=== PATIENT | female | born 1955 | race Caucasian/White ===

== ENCOUNTER 2022-06-03 16:30 | Outpatient (CLI) | payer MEDICARE, BC, SELFPAY ==
[2022-06-03 17:18] LABS: Vitamin D 25 Hydroxy* 41 ng/mL (30-80)
== END 2022-06-03 16:31 | disposition home or self-care (01) ==
PROVIDERS: PCP Internal Medicine; Visit Provider Internal Medicine
DX: M85.80 Other specified disorders of bone density and structure, unspecified site (principal)
CPT/HCPCS: 82306

== ENCOUNTER 2022-07-07 08:33 | Outpatient (CLI) | payer MEDICARE, BC, SELFPAY ==
--- NOTE | 2022-07-07 08:45 | CRLHL7_ITS ---
For Patients: As a result of the Century Cures Act, medical imaging exams and procedure reports are released immediately into your electronic medical record. You may view this report before your referring provider. If you have questions, please contact your health care provider. BILATERAL SCREENING MAMMOGRAM WITH COMPUTER-AIDED DETECTION AND TOMOSYNTHESIS TECHNIQUE: CC and MLO views were obtained. These mammographic images have been obtained using full-field digital technique. These mammographic images were interpreted with the benefit of computer-aided detection. Breast Tomosynthesis was used in this interpretation. COMPARISON FILM: 03/18/21, 10/01/17 diagnostic, 09/25/17, 05/20/13. FINDINGS: There are scattered areas of fibroglandular density IMPRESSION: There is no radiographic evidence for malignancy. ASSESSMENT: BI-RADS Category 1: Negative RECOMMENDATION: Routine screening mammogram in 1 year. A lay language report of this examination will be provided to the patient. Maikel Mansfield M.D. Diagnostic Radiologist [email or web address] RANDY/[email or web address] Transcribed: 8:03 p.m. JEREMY/Dictated by: Maikel Mansfield MD @ 07/08/2022 11:47:00 AM (Electronically Signed)
== END 2022-07-07 08:34 | disposition home or self-care (01) ==
LOC: MAMMO 08:35
PROVIDERS: PCP Internal Medicine; Visit Provider Internal Medicine
DX: Z12.31 Encounter for screening mammogram for malignant neoplasm of breast (principal)
CPT/HCPCS: 77063; 77067

== ENCOUNTER 2023-08-26 09:00 | Outpatient (CLI) | payer MEDICARE, BC, SELFPAY ==
--- NOTE | 2023-08-26 09:15 | CRLHL7_ITS ---
For Patients: As a result of the Cures Act, medical imaging exams and procedure reports are released immediately into your electronic medical record. You may view this report before your referring provider. If you have questions, please contact your health care provider. BILATERAL SCREENING MAMMOGRAM WITH COMPUTER-AIDED DETECTION AND TOMOSYNTHESIS TECHNIQUE: CC and MLO views were obtained. These mammographic images have been obtained using full-field digital technique. These mammographic images were interpreted with the benefit of computer-aided detection. Breast Tomosynthesis was used in this interpretation. COMPARISON FILM: 07/07/22, 03/18/21, 09/25/17. FINDINGS: There are scattered areas of fibroglandular density IMPRESSION: There is no radiographic evidence for malignancy. ASSESSMENT: BI-RADS Category 2: Benign RECOMMENDATION: Routine screening mammogram in 1 year. A lay language report of this examination will be provided to the patient. Maikel Mansfield M.D. Diagnostic Radiologist [email or web address] RANDY/[email or web address] / be/Dictated by: Maikel Mansfield MD @ 08/26/2023 11:32:00 AM (Electronically Signed)
== END 2023-08-26 09:01 | disposition home or self-care (01) ==
LOC: MAMMO 09:02
PROVIDERS: PCP Internal Medicine; Visit Provider Internal Medicine
DX: Z12.31 Encounter for screening mammogram for malignant neoplasm of breast (principal)
CPT/HCPCS: 77063; 77067

== ENCOUNTER 2024-02-03 13:17 | Outpatient (CLI) | payer MEDICARE, BC, SELFPAY ==
--- NOTE | 2024-02-03 13:30 | CRLHL7_ITS ---
For Patients: As a result of the Century Cures Act, medical imaging exams and procedure reports are released immediately into your electronic medical record. You may view this report before your referring provider. If you have questions, please contact your health care provider. DXA BONE MINERAL DENSITY STUDY Reason for exam: Osteoporosis. History of fractured ribs. Current height (in): 68. Weight (lb): 177. Menopause age: 33. Ethnicity: White. 1. Have you had a previous hip or vertebral fracture? No. 2. Have you had any fractures during your adult life which did not result from significant trauma (e.g., auto accident)? No. 3. Did either of your parents have a hip fracture? No. 4. Do you smoke? Yes. 5. Have you ever taken Glucocorticoids? No. 6. Do you have rheumatoid arthritis? No. 7. Do you have secondary osteoporosis? No. 8. Do you drink 3 or more alcoholic drinks per day? No. 9. Are you being treated for osteoporosis? No. 10. Have you ever taken any of the following medications: Actonel, Evista, Fosamax, Miacalcin, Reclast, Boniva, Forteo, HRT (i.e. estrogen/hormone therapy), Protelos, Prolia, Vitamin D, Calcium, other ??? please specify. ANSWER: Yes, vitamin D. 11. Do you have any of the following medical conditions: Anorexia or bulimia, asthma or emphysema, end stage renal disease, hyperparathyroidism, any seizure disorders, cancer, inflammatory bowel diseases, hysterectomy, other ??? please specify. ANSWER: Yes, hysterectomy. 12. What was your maximum height (inches)? 68. 13. Do you perform weight bearing exercise regularly? No. 14. Do you regularly consume dairy products? Yes. 15. Do you drink caffeinated beverages? No. 16. At what age did your period start? 11. 17. Are you premenopausal? No. 18. How many full term pregnancies have you had? 2. 19. Have you ever missed your period for more than 6 months in a row (not including or menopause)? No. TECHNIQUE: Bone mineral density study was performed using the [employer] FINDINGS: The results of the study expressed as bone mineral density (BMD) are as follows: Lumbar spine L1 to L4: BMD: 1.076 g/cm2. T-score: 0.3. Z-score: 2.4. Neck Left: BMD: 0.704 g/cm2. T-score: -1.3. Z-score: 0.5. Right: BMD: 0.712 g/cm2. T-score: -1.2. Z-score: 0.6. Total Left: BMD: 0.867 g/cm2. T-score: -0.6. Z-score: 0.9. Right: BMD: 0.893 g/cm2. T-score: -0.4. Z-score: 1.1. IMPRESSION: Osteopenia. *Comparison exams done prior to 01/2020 were performed on different unit, [employer]. COMPARISON: Compared with scan of 03/13/2021, the bone mineral density has increased by 3.4 percent at the spine and increased by 4.7 percent at the hip. FRAX 10-year Fracture Risk Major Osteoporotic Fracture: 9.8 percent Hip Fracture: 2.1 percent Reported Risk Factors: [place] () Neck BMD=0.704, BMI=26.9, smoking Solo Griffin M.D. Body/Diagnostic Radiologist [email or web address] CAROLYN/sp SP/Dictated by: Solo Griffin MD @ 02/04/2024 1:41:00 PM (Electronically Signed)
== END 2024-02-03 13:18 | disposition home or self-care (01) ==
LOC: RAD 13:18
PROVIDERS: PCP Internal Medicine; Visit Provider Internal Medicine
DX: M81.0 Age-related osteoporosis without current pathological fracture (principal); M85.88 Other specified disorders of bone density and structure, other site
CPT/HCPCS: 77080

== ENCOUNTER 2024-05-03 07:53 | Outpatient (CLI) | payer MEDICARE, BC, SELFPAY ==
--- NOTE | 2024-05-03 09:01 | W.ANESCHARGE ---
Anesthesia Charges Start Date/Time Anesthesia Start Date: 05/03/24 Anesthesia Start Time: 08:45 Stop Date/Time Anesthesia Stop Date: 05/03/24 Anesthesia Stop Time: 09:25 Summary Extremes of Age - Over 70 or under 1: MDA
--- NOTE | 2024-05-03 09:27 | W.ANESCHARGE ---
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
== END 2024-05-03 07:54 | disposition home or self-care (01) ==
LOC: OP CLINIC 07:54
PROVIDERS: PCP Internal Medicine; Visit Provider Surgery
DX: Z86.010 Personal history of colon polyps (principal); D12.3 Benign neoplasm of transverse colon; D12.8 Benign neoplasm of rectum; K57.30 Diverticulosis of large intestine without perforation or abscess without bleeding
CPT/HCPCS: 00811; 45385; 88305; 99100; J2704

== ENCOUNTER 2025-01-02 10:58 | Outpatient (CLI) | payer MEDICARE, BC, SELFPAY | END 2025-01-02 10:59 | disposition home or self-care (01) | PROVIDERS: PCP Internal Medicine; Visit Provider Internal Medicine | DX: I10 Essential (primary) hypertension (principal); M85.80 Other specified disorders of bone density and structure, unspecified site; R41.89 Other symptoms and signs involving cognitive functions and awareness; R41.3 Other amnesia; F32.9 Major depressive disorder, single episode, unspecified; F41.8 Other specified anxiety disorders; F17.200 Nicotine dependence, unspecified, uncomplicated | CPT/HCPCS: 80053; 80061; 82306; 82607; 84443 ==

== ENCOUNTER 2025-01-11 07:53 | Outpatient (CLI) | payer MEDICARE, BC, SELFPAY ==
--- NOTE | 2025-01-11 08:00 | CRLHL7_ITS ---
For Patients: As a result of the Century Cures Act, medical imaging exams and procedure reports are released immediately into your electronic medical record. You may view this report before your referring provider. If you have questions, please contact your health care provider. INDICATION: Mild cognitive impairment. TECHNIQUE: Brain MRI without contrast. COMPARISON: None. FINDINGS: No evidence of acute ischemia. No evidence of acute or chronic intracranial blood products. Multiple small FLAIR hyperintensities scattered within the supratentorial white matter, typical for chronic microvascular ischemic change. Qemq-sz-[id number] generalized parenchymal volume loss. No mass effect or herniation. No hydrocephalus or extra-axial collections. The pituitary gland, parasellar structures and optic chiasm are normal. Posterior fossa is normal. All the major intracranial vascular structures demonstrate normal flow-related signal. The orbital contents are normal. No calvarial or skull base marrow replacing process. Right maxillary sinus mucous retention cyst. Mild ethmoid air cell mucosal thickening. A left-sided partial mastoid effusion. No extracranial soft tissue findings. IMPRESSION: 1. No acute infarction or other acute intracranial pathology. 2. Mild chronic microvascular ischemic changes and mild to moderate generalized parenchymal volume loss. Dictated by Luis Bryant MD @ 01/11/2025 3:25:30 PM (Electronically Signed)
== END 2025-01-11 07:54 | disposition home or self-care (01) ==
PROVIDERS: PCP Internal Medicine; Visit Provider Internal Medicine
DX: G31.84 Mild cognitive impairment of uncertain or unknown etiology (principal); I67.82 Cerebral ischemia
CPT/HCPCS: 70551

== ENCOUNTER 2025-03-24 03:05 | Emergency (ER) | payer MEDICARE, BC, SELFPAY ==
[2025-03-24 03:11] VITALS: BP 169/70; PULSE 65; RESP 18; TEMP 36.2; O2SAT 95; BMI 30.4
--- NOTE | 2025-03-24 03:30 | ED_ITS ---
HPI - General Adult General Chief complaint: Constipation Stated complaint: problems going to the bathroom Time Seen by Provider: 03/24/25 03:30 History of Present Illness HPI narrative: Patient is a 69-year-old woman who has not had a bowel movement for 2 days. She is passing gas and is not having a fever. She has no dysuria. She feels distended and is very much interested in having a bowel movement. She has had no blood in her stool. She does pass a small amount of stool with gas. She has no reflux. No nausea no vomiting. She has otherwise been feeling fine but is prone to constipation. Symptoms have been present for 2 days. Related Data Home Medications ?Medication ?Instructions ?Recorded ?Confirmed ascorbate calcium (vitamin C) 500 500 mg PO QDAY 05/0611/26/23 mg tablet cholecalciferol (vitamin D3) 25 25 mcg PO QDAY 2 11/26/23 mcg (1,000 unit) capsule multivitamin (Multiple Vitamins 1 tab PO QAM 05/06/22 11/26/23 tablet) Previous Rx's ?Medication ?Instructions ?Recorded lorazepam 0.5 mg tablet 0.5 mg PO QDAY PRN anxiety # 30 tabs 11/26/23 paroxetine HCl 30 mg tablet 30 mg PO .Bedtime #90 tabs 01/02/25 valsartan 80 1 tab PO QDAY #90 tabs 01/02 mg-hydrochlorothiazide 12.5 mg tablet Allergies Allergy/AdvReac Type Severity Reaction Status Date / Time No Known Allergies Allergy Unknown Unverified 01/02/25 12:46 Review of Systems Status of ROS: Reports: 10 or more systems reviewed and unremarkable except as noted in History and below PFSH PFS Surgical History History of hysterectomy (05/21/09) ?Z90.710 - Acquired absence of both cervix and uterus (ICD-10) Bilateral carpal tunnel syndrome (2018) ?G56.03 - Carpal tunnel syndrome, bilateral upper limbs (ICD-10) Social History What is your current living situation?: I presently have a place to live Problems where you live: no known problems In the past 12 months, utilities in danger of being shut off: no In past 12 months, lack of transportation kept you from medical appts, meetings, work, or getting things needed for daily living: no In the past 12 mos, have been you worried that your food would run out before you had money to buy more?: never true In the past 12 mos, the food you bought just didn't last and you didn't have money to buy more?: never true Smoking Status: Former smoker What tobacco products do you use: cigarettes Years smoked: 50 Smoking quit date/years: <= 15 years ago Do you use any of these nicotine containing products: None Second hand tobacco smoke exposure: Yes How often do you have a drink containing alcohol: never AUDIT-C Alcohol total score: 0 Non-prescribed substance use: denies use How often does anyone, including family, friends and others, physically hurt you : never How often does anyone, including family, friends and others, insult or talk down to you: never How often does anyone, including family, friends and others, threaten you with harm: never How often does anyone, including family, friends and others, scream or curse at you: never service: No Exam Narrative: Exam Narrative: EXAM GENERAL: Patient appears comfortable and well. EYES: No scleral icterus. LYMPH: No supraclavicular or cervical lymphadenopathy. SKIN: Visible skin seen during exam normal or with benign process only. EXT: No dependent lower extremity pedal edema. HEART: Regular rate and rhythm with no murmurs, rubs, or gallops. LUNGS: Clear to auscultation bilaterally with no crackles or wheezes. ABD: Soft, non tender, non distended. PSYCH: Good eye contact, speech is not pressured. Const: Vital Signs, click to edit/add: Vital Signs - 24 hr 03/24/25 03:11 Temperature 97.1 F L Pulse Rate [Pulse Oximeter] 65 Respiratory Rate 18 Blood Pressure [Ri ght Upper Arm] 169/70 H Pulse Oximetry 95 Oxygen Delivery Me thod Room Air Course Course ED Course: Patient seen examined. Her abdomen is very much soft. She has no Lhermitte symptoms. Do think we can treat her with magnesium citrate advancement of her diet and plenty of rest plenty of fluids. She will follow-up with her primary physician as needed. Vital Signs Vital signs: Initial Vital Signs Temperature 97.1 F L 03/24/25 03:11 Temperature Source Oral 03/24/25 03:11 Pulse Rate 65 03/24/25 03:11 Pulse Rhythm Regular 03/24/25 03:11 Respiratory Rate 18 03/24/25 03:11 Blood Pressure 169/70 H 03/24/25 03:11 Blood Pressure Mean 103 03/24/25 03:11 Blood Pressure Position Sitting 03/24/25 03:11 Pulse Oximetry 95 03/24/25 03:11 Oxygen Delivery Method Room Air 03/24/25 03:11 Vital Signs Temperature 97.1 F L 03/24/25 03:11 Pulse Rate 65 03/24/25 03:11 Respiratory Rate 18 03/24/25 03:11 Blood Pressure 169/70 H 03/24/25 03:11 Pulse Oximetry 95 03/24/25 03:11 Oxygen Delivery Method Room Air 03/24/25 03:11 Temperature 97.1 F L 03/24/25 03:11 Pulse Rate 65 03/24/25 03:11 Respiratory Rate 18 03/24/25 03:11 Blood Pressure 169/70 H 03/24/25 03:11 Pulse Oximetry 95 03/24/25 03:11 Oxygen Delivery Method Room Air 03/24/25 03:11 Discharge Plan Discharge Clinical Impression: Constipation Instructions: Constipation (ED) Additional Instructions: Baby's EM citrate daily as needed 10 oz Increase fiber Increase fluid intake Follow-up with your doctor as needed. Activity Level: No Restrictions Discharge Diet: Regular Prescriptions: No Action multivitamin [Multiple Vitamins] Tablet 1 tab PO QAM cholecalciferol (vitamin D3) 25 mcg (1,000 unit) capsule 25 mcg PO QDAY ascorbate calcium (vitamin C) 500 mg tablet 500 mg PO QDAY lorazepam 0.5 mg tablet 0.5 mg PO QDAY PRN (Reason: anxiety) Qty: 30 1RF paroxetine HCl 30 mg tablet 30 mg PO .Bedtime Qty: 90 3RF valsartan-hydrochlorothiazide 80-12.5 mg tablet 1 tab PO QDAY Qty: 90 3RF Follow Up/Referrals: Iram Hitlon MD [Primary Care Provider, Internal Medicine] [facility]: [facility]
[2025-03-24] MEDS: MAGNESIUM CITRATE 300 ML SOLUTION PO (03:34)
== END 2025-03-24 03:41 | disposition home or self-care (01) ==
PROVIDERS: Emergency Provider Internal Medicine; PCP Internal Medicine
DX: K59.00 Constipation, unspecified (principal)
CPT/HCPCS: 99283; A9270

== ENCOUNTER 2025-04-17 07:52 | Outpatient (CLI) | payer MEDICARE, BC, SELFPAY ==
--- NOTE | 2025-04-17 08:15 | CRLHL7_ITS ---
For Patients: As a result of the Century Cures Act, medical imaging exams and procedure reports are released immediately into your electronic medical record. You may view this report before your referring provider. If you have questions, please contact your health care provider. BILATERAL DIGITAL SCREENING MAMMOGRAM WITH COMPUTER-AIDED DETECTION AND TOMOSYNTHESIS CLINICAL HISTORY: Routine screening exam. COMPARISON: 08/26/2023, 07/07/2022, 03/18/2021 TECHNIQUE: Digital mammogram in CC and MLO projections including computer-aided detection (CAD). Tomosynthesis was used in this interpretation. BREAST COMPOSITION: The breasts are almost entirely fatty. FINDINGS: RIGHT Breast: Nodular density located just beneath the skin 9 cm from the nipple lower inner quadrant. Probable sebaceous cyst. LEFT Breast: No suspicious findings. IMPRESSION: RIGHT breast asymmetry/mass. RECOMMENDATIONS: Right breast ultrasound recommended. The [facility] will contact the patient. A lay language report of this examination will be provided to the patient. BI-RADS Category 0: Incomplete: Need Additional Imaging Evaluation Dictated by Maikel Mansfield MD @ 04/18/2025 9:24:54 AM (Electronically Signed)
== END 2025-04-17 07:53 | disposition home or self-care (01) ==
LOC: MAMMO 07:53
PROVIDERS: PCP Internal Medicine; Visit Provider Internal Medicine
DX: Z12.31 Encounter for screening mammogram for malignant neoplasm of breast (principal); N63.10 Unspecified lump in the right breast, unspecified quadrant
CPT/HCPCS: 77063; 77067

== ENCOUNTER 2025-05-01 09:49 | Outpatient (CLI) | payer MEDICARE, BC, SELFPAY ==
--- NOTE | 2025-05-01 10:15 | CRLHL7_ITS ---
For Patients: As a result of the Cures Act, medical imaging exams and procedure reports are released immediately into your electronic medical record. You may view this report before your referring provider. If you have questions, please contact your health care provider. RIGHT BREAST ULTRASOUND CLINICAL HISTORY: RIGHT breast mass/asymmetry. COMPARISON: Mammogram 04/17/2025. TECHNIQUE: Real-time ultrasound imaging of RIGHT breast with imaging documentation. Scanning was performed by both the technologist and the radiologist. FINDINGS: Targeted sonogram RIGHT breast 4 o`clock 10 cm from the nipple performed. In this location, there is a raised skin lump which corresponds to a subcutaneous hypoechoic solid nodule with some internal vascularity which measures 8 x 7 x 9 millimeters. IMPRESSION: Subcutaneous nodule RIGHT breast 4 o`clock 10 cm from the nipple measures 8 x 7 x 9 millimeters. RECOMMENDATIONS: Surgical consultation recommended for consideration of excisional biopsy. Results and recommendations were discussed with the patient at the time of the exam. A lay language report of this examination will be provided to the patient. BI-RADS Category 2: Benign Dictated by Maikel Mansfield MD @ 05/01/2025 10:49:46 AM jj/Dictated by: Maikel Mansfield MD @ 05/01/2025 10:49:00 AM (Electronically Signed)
== END 2025-05-01 09:50 | disposition home or self-care (01) ==
LOC: US 09:49
PROVIDERS: PCP Internal Medicine; Visit Provider Internal Medicine
DX: N63.10 Unspecified lump in the right breast, unspecified quadrant (principal); R92.8 Other abnormal and inconclusive findings on diagnostic imaging of breast
CPT/HCPCS: 76642